=== PATIENT | male | born 1965 | race Caucasian/White ===

== ENCOUNTER 2019-10-10 08:43 | Emergency (ER) | payer SELFPAY ==
[~2019-10-10] VITALS: Ht 175 cm; Wt 92.0 kg
--- NOTE | 2019-10-10 08:59 | ED Upper Extremity ---
General Chief Complaint: Upper Extremity Stated Complaint: RT SHOULDER PAIN Source: patient Exam Limitations: no limitations History of Present Illness Date Seen by Provider: Oct 10, 2019 Time Seen by Provider: 08:57 Initial Comments 54-year-old male presents with right shoulder pain. Patient reports that the pain started in his right shoulder and right neck about 9 days ago. Patient states he was seen at the urgent care/walk-in clinic and was given naproxen and Flexeril. Reports he continues to have pain. Patient does not have no new acute injuries. Patient has full range of motion. He denies any chest pain, shortness of breath, fevers chills nausea vomiting or any other systemic complaints patient also reported that a few years back he was having problems with his shoulder and it was given a cortisone injection that seemed to help. Allergies and Home Medications Allergies Coded Allergies: No Known Drug Allergies (Unverified , 10/10/19) Patient Home Medication List Home Medication List Reviewed: Yes Review of Systems Constitutional: No chills, No fever Respiratory: no symptoms reported Cardiovascular: no symptoms reported Gastrointestinal: no symptoms reported Genitourinary: no symptoms reported Musculoskeletal: see HPI Skin: no symptoms reported Past Fglnahj-Ynoscy-Fyarem Hx Past Med/Social Hx: Reviewed Nursing Past Med/Soc Hx Patient Social History Recent Foreign Travel: No Physical Exam Vital Signs Capillary Refill : Height, Weight, BMI Height: '" Weight: lbs. oz. kg; BMI Method: General Appearance: WD/WN, no apparent distress Neck: supple, tender lateral (along trapezius) Cardiovascular: normal peripheral pulses, regular rate, rhythm Respiratory: chest non-tender, lungs clear, normal breath sounds, no respiratory distress Gastrointestinal: non tender, soft Shoulder: no evidence of injury, normal ROM; No bone tenderness; soft tissue tenderness Elbow/Forearm: no evidence of injury, normal ROM Wrist: Yes no evidence of injury, Yes normal ROM Neurologic/Tendon: normal sensation, normal motor functions, normal tendon functions Neurologic/Psychiatric: wellness ambassador II-XII nml as tested, alert, normal mood/affect, oriented x 3 Skin: normal color, warm/dry Progress/Results/Core Measures Results/Orders My Orders Orders - REBA DWYER DO Orphenadrine Injection (Norflex Injectio (10/10/19 09:00) Progress Progress Note : Time: 09:02 Progress Note I discussed with patient that naproxen and Flexeril as a treatment of choice for what he has. That I will not be prescribing any narcotics or stronger medicat ion. He can use topical lidocaine with menthol. He should follow-up with dairy equipment specialist for further management or his primary care provider for other pain management. Patient discharged home in stable condition Departure Impression Primary Impression: Pain of right shoulder region Additional Impression: Acute myofascial strain Disposition: HOME, SELF-CARE Condition: Stable Departure-Patient Inst. Referrals: VANIA HATHAWAY APRN (PCP) Primary Care Physician NO,LOCAL PHYSICIAN (Family) Primary Care Physician Patient Instructions: Shoulder Pain (DC), Tendonitis (DC) Add. Discharge Instructions: 4% topical lidocaine with menthol to affected area as directed on package Warm moist heat to affected area Follow-up with an dairy equipment specialist for further evaluation Naprosyn 500 mg twice a day, do not use more than this as it can injury or kidneys, use already prescribed Flexeril as directed Emergency department focuses on treating and ruling out life-threatening diseases. Whenever possible, a diagnosis is given. However, most patients are given an impression based on their history, physical exam, and workup during your brief time in the ER. Information about probable diagnosis and other educational material has been provided. Please take the time to read and understand this information. It is very important that you follow up with a physician as discussed during the visit today. Failure to adhere to your follow-up instructions may lead to severe disability, injury, or so please make sure to keep your appointments or obtain one as requested. Please keep in mind the emergency department is not designed to your primary care or "family doctor" and nonurgent issues are best evaluated by an outpatient physician All discharge instructions reviewed with patient and/or family. Voiced understanding. REBA DWYER DO Oct 10, 2019 08:59
[2019-10-10] MEDS ORDERED: ORPHENADRINE 60 MG/2 ML (NORFLEX) AMP IM ONE (09:00)
[2019-10-10 09:14] VITALS: BP 137/85
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
== END 2019-10-10 09:15 | disposition home or self-care (01) ==
LOC: EDUNIT# 08:43 → ER FS 08:46
DX: S46.911A Strain of unspecified muscle, fascia and tendon at shoulder and upper arm level, right arm, initial encounter (principal); X58.XXXA Exposure to other specified factors, initial encounter
CPT/HCPCS: 96372; 99284

== ENCOUNTER 2020-02-10 09:12 | Emergency (ER) | payer SELFPAY ==
[~2020-02-10] VITALS: Ht 175.2 cm; Wt 95.6 kg
[2020-02-10] MEDS ORDERED: LIDOCAINE 1% INJ 20 ML 20 ML VIAL ONE (09:26)
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
[2020-02-10] MEDS ORDERED: LIDOCAINE 1% INJ 20 ML 20 ML VIAL INJ ONE (09:45)
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
--- NOTE | 2020-02-10 10:02 | Diagnostic Imaging Report ---
INDICATION: Fall with injury to the right lower extremity. Time of exam: 9:47 AM Frontal and lateral views of the right tibia and fibula were obtained. Alignment at the knee and ankle is normal. The tibia and fibula appear to be intact. No fractures are detected. Soft tissues are unremarkable. IMPRESSION: No acute bony abnormality is detected. Dictated by: Dictated on workstation # [id number]
[2020-02-10 10:10] VITALS: BP 142/86
== END 2020-02-10 10:10 | disposition home or self-care (01) ==
LOC: EDUNIT# 09:12 → ER FS 09:16
DX: S81.811A Laceration without foreign body, right lower leg, initial encounter (principal); V27.4XXA Motorcycle driver injured in collision with fixed or stationary object in traffic accident, initial encounter
CPT/HCPCS: 12002; 73590

== ENCOUNTER → 2020-03-07 | Outpatient (CLI) | payer SELFPAY | LOC: WOUNDCARE 13:42 | PROVIDERS: ATTEND Surgery | DX: S81.811A Laceration without foreign body, right lower leg, initial encounter (principal); L03.115 Cellulitis of right lower limb; I89.0 Lymphedema, not elsewhere classified | CPT/HCPCS: 11042; A6260; G0463 ==

== ENCOUNTER → 2020-03-22 | Outpatient (CLI) | payer SELFPAY | LOC: WOUNDCARE 12:38 | PROVIDERS: ATTEND Orthopaedic Surgery Hand Surgery | DX: I96 Gangrene, not elsewhere classified (principal); S81.811A Laceration without foreign body, right lower leg, initial encounter; L97.212 Non-pressure chronic ulcer of right calf with fat layer exposed; I89.0 Lymphedema, not elsewhere classified; L03.115 Cellulitis of right lower limb | CPT/HCPCS: 97597; G0463 ==

== ENCOUNTER 2020-06-29 11:25 | Emergency (ER) | payer SELFPAY ==
[~2020-06-29] VITALS: Ht 177.8 cm; Wt 100.0 kg
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
[2020-06-29 12:44] VITALS: BP 152/91
== END 2020-06-29 12:47 ==
LOC: EDUNIT# 11:31 → ER FS 11:33
DX: S09.90XA Unspecified injury of head, initial encounter (principal); S00.01XA Abrasion of scalp, initial encounter; R42 Dizziness and giddiness; W21.11XA Struck by baseball bat, initial encounter; W19.XXXA Unspecified fall, initial encounter; Y35.839A Legal intervention involving a conducted energy device, unspecified person injured, initial encounter
CPT/HCPCS: 70450; 72125

== ENCOUNTER 2022-09-25 14:35 | Emergency (ER) | payer SELFPAY ==
--- NOTE | 2022-09-25 14:39 | ED Lower Extremity ---
General Stated Complaint: LT LEG INJ History of Present Illness Date Seen by Provider: Sep 25, 2022 Time Seen by Provider: 14:38 Initial Comments 57-year-old male presents with left lower abdomen/groin injury. Patient reports that he was helping hold down a cow when they are pointed calf. That the cow lifted his head quickly and cannot remove it and is now complaining of what he feels something "tore in his groin" patient was able to walk in without difficulty. He denies any noticeable bulge in his testicle or groin. Patient denies any other injury Allergies and Home Medications Allergies Coded Allergies: No Known Drug Allergies (Unverified , 10/10/19) Patient Home Medication List Home Medication List Reviewed: Yes Review of Systems Constitutional: no symptoms reported EENTM: no symptoms reported Respiratory: no symptoms reported Cardiovascular: no symptoms reported Gastrointestinal: see HPI Genitourinary: see HPI Musculoskeletal: see HPI Skin: no symptoms reported Psychiatric/Neurological: No Symptoms Reported Physical Exam Vital Signs Vital Signs - First Documented 09/25/22 14:46 Temp 36.5 Pulse 92 Resp 16 B/P (MAP) 155/90 (111) Pulse Ox 95 O2 Delivery Room Air Capillary Refill : Height, Weight, BMI Height: '" Weight: lbs. oz. kg; BMI Method: General Appearance: WD/WN, no apparent distress Neck: full range of motion Cardiovascular: normal peripheral pulses, regular rate, rhythm Respiratory: lungs clear, no respiratory distress, no accessory muscle use Gastrointestinal: soft, tenderness (Left lower abdomen/groin); No hernia Hips: bilateral hip non-tender Knees: bilateral knee non-tender Ankles: bilateral ankle non-tender Neurologic/Psychiatric: alert, normal mood/affect, oriented x 3 Skin: normal color, warm/dry Progress/Results/Core Measures Results/Orders Lab Results Laboratory Tests Test 09/25/22 14:51 Range/Units Urine Color DARK YELLOW Urine Clarity CLEAR Urine pH 6.0 5-9 Urine Specific [place] >=1.030 1.016-1.022 Urine Protein NEGATIVE NEGATIVE Urine Glucose (UA) NEGATIVE NEGATIVE Urine Ketones NEGATIVE NEGATIVE Urine Nitrite NEGATIVE NEGATIVE Urine Bilirubin NEGATIVE NEGATIVE Urine Urobilinogen 0.2 < = 1.0 MG/DL Urine Leukocyte Esterase NEGATIVE NEGATIVE Urine RBC (Auto) NEGATIVE NEGATIVE Urine RBC NONE /HPF Urine WBC RARE /HPF Urine Squamous Epithelial Cells NONE /HPF Urine Crystals PRESENT H /LPF Urine Calcium Oxalate Crystals FEW H /LPF Urine Bacteria NEGATIVE /HPF Urine Casts NONE /LPF Urine Mucus MODERATE H /LPF Urine Culture Indicated NO My Orders Orders - REBA DWYER DO Ua Culture If Indicated (09/25/22 14:47) Us Scrotum (Testicle) [id number] (09/25/22 14:47) Ketorolac Injection (Toradol Injection) (09/25/22 15:15) Orphenadrine Inj (Ed Only) (Norflex Inje (09/25/22 15:15) Vital Signs/I&O 09/25/22 09/25/22 14:46 15:17 Temp 36.5 36.5 Pulse 92 92 Resp 16 16 B/P (MAP) 155/90 (111) 155/90 Pulse Ox 95 95 O2 Delivery Room Air Room Air Progress Progress Note : Progress Note Patients physical exam shows no acute abnormalities or hernias. Patient ultrasound shows no hernia or abnormality. Patient complains of pain however when I went into discussed findings with him he was sleeping and resting comfortably with no signs of distress. Patient likely with a 6 groin strain. Patient can use Tylenol ibuprofen as stable and discharged home. Departure Impression Primary Impression: Strain of left groin Disposition: 01 HOME, SELF-CARE Condition: Stable Departure-Patient Inst. Patient Instructions: Muscle Strain ED, Groin Strain ED Add. Discharge Instructions: Tylenol and ibuprofen every 4-6 hours as needed for pain. You may use your already prescribed muscle relaxants. You can use 4% topical lidocaine with menthol in affected area. If symptoms or not improving over the next week please follow-up with your primary care provider for recheck and further evaluation. REBA DWYER DO Sep 25, 2022 14:38
[2022-09-25 15:03] LABS: BILIRUBIN,URINE NEGATIVE (NEGATIVE); CLARITY,URINE CLEAR; GLUCOSE, URINE (UA) NEGATIVE (NEGATIVE); KETONES,URINE NEGATIVE (NEGATIVE); LEUKOCYTE ESTERASE ,URINE NEGATIVE (NEGATIVE); NITRITE,URINE NEGATIVE (NEGATIVE); PROTEIN,URINE NEGATIVE (NEGATIVE)
[2022-09-25 15:05] LABS: BACTERIA,URINE NEGATIVE /HPF; CALCIUM OXALATE CRYSTALS,UR FEW /LPF; COLOR,URINE DARK YELLOW; WBC,URINE RARE /HPF
[2022-09-25] MEDS ORDERED: KETOROLAC 30 MG/ML VIAL IM STA (15:15)
[2022-09-25] MEDS ORDERED: ORPHENADRINE 60 MG/2 ML (NORFLEX) AMP (ED ONLY) IM STA (15:15)
[2022-09-25 15:17] VITALS: BP 155/90
--- NOTE | 2022-09-25 15:56 | Diagnostic Imaging Report ---
PROCEDURE: US Scrotum. TECHNIQUE: Multiple real-time grayscale images were obtained over the scrotum in various projections bilaterally. INDICATION: Left groin pain. The right testicle measures 5.3 x 2.2 x 2.9 cm and the left testicle measures 4.3 x 2.1 x 2.7 cm. Both testes show homogeneous echotexture. No discrete testicular mass is detected. There is blood flow to both testes. Epididymides are unremarkable. There are small bilateral hydroceles present. No varicocele is detected. Left inguinal canal was evaluated. No definite hernia is detected. IMPRESSION: Small bilateral hydroceles. The study is otherwise unremarkable. Dictated by: Dictated on workstation # [id number]
== END 2022-09-25 15:25 | disposition home or self-care (01) ==
LOC: EDUNIT# 14:35 → ER FS 14:38
DX: S39.011A Strain of muscle, fascia and tendon of abdomen, initial encounter (principal); Z28.310 Unvaccinated for COVID-19; W55.22XA Struck by cow, initial encounter
CPT/HCPCS: 76870; 81000

== ENCOUNTER 2022-10-01 13:20 | Emergency (ER) | payer SELFPAY ==
[~2022-10-01] VITALS: Ht 177.8 cm; Wt 88.5 kg
[2022-10-01] MEDS ORDERED: ORPHENADRINE 60 MG/2 ML (NORFLEX) AMP (ED ONLY) IM STA (13:39)
[2022-10-01] MEDS ORDERED: KETOROLAC 60 MG/2 ML VIAL IM STA (13:39)
[2022-10-01] MEDS ORDERED: CYCL10TA25 PO (13:43)
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
[2022-10-01 13:49] VITALS: BP 133/97
== END 2022-10-01 13:49 | disposition home or self-care (01) ==
LOC: EDUNIT# 13:20 → ER FS 13:22
DX: S39.011A Strain of muscle, fascia and tendon of abdomen, initial encounter (principal); Z28.310 Unvaccinated for COVID-19; X58.XXXA Exposure to other specified factors, initial encounter
CPT/HCPCS: 99284

== ENCOUNTER 2023-05-10 18:03 | Emergency (ER) | payer SELFPAY ==
[~2023-05-10 18:03] MED LIST: CYCL10TA25 PO
[2023-05-10 18:10] VITALS: BP 146/99
[2023-05-10] MEDS ORDERED: FAMOTIDINE INJ 20MG/2ML VIAL IV STA (18:34)
[2023-05-10 18:37] LABS: BASOPHILS # (AUTO) 0.1 10^3/uL (0.0-0.1); BASOPHILS % (AUTO) 0 % (0-10); EOSINOPHILS # (AUTO) 0.3 10^3/uL (0.0-0.3); EOSINOPHILS % (AUTO) 3 % (0-10); HEMATOCRIT 44 % (40-54); HEMOGLOBIN 15.2 g/dL (13.3-17.7); LYMPHOCYTES # (AUTO) 2.8 10^3/uL (1.0-4.0); LYMPHOCYTES % (AUTO) 24 % (12-44); MEAN CORPUSCULAR HEMOGLOBIN 31 pg (25-34); MEAN CORPUSCULAR HGB CONC 35 g/dL (32-36); MEAN CORPUSCULAR VOLUME 90 fL (80-99); MONOCYTES # (AUTO) 1.6 10^3/uL (0.0-1.0); MONOCYTES % (AUTO) 14 % (0-12); NEUTROPHILS # (AUTO) 6.8 10^3/uL (1.8-7.8); NEUTROPHILS % (AUTO) 59 % (42-75); PLATELET COUNT 298 10^3/uL (130-400); WHITE BLOOD COUNT 11.6 10^3/uL (4.3-11.0)
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
[2023-05-10] MEDS ORDERED: ONDANSETRON INJECTION 4 MG/2 ML (SDV) IVP ONE (18:45)
[2023-05-10 18:46] LABS: BILIRUBIN,URINE NEGATIVE (NEGATIVE); CLARITY,URINE CLEAR; COLOR,URINE YELLOW; GLUCOSE, URINE (UA) NEGATIVE (NEGATIVE); KETONES,URINE NEGATIVE (NEGATIVE); LEUKOCYTE ESTERASE ,URINE NEGATIVE (NEGATIVE); NITRITE,URINE NEGATIVE (NEGATIVE); PROTEIN,URINE NEGATIVE (NEGATIVE)
[2023-05-10 18:50] LABS: BACTERIA,URINE TRACE /HPF
[2023-05-10 18:52] LABS: ALANINE AMINOTRANSFERASE 40 U/L (0-55); ALKALINE PHOSPHATASE 82 U/L (40-136); BILIRUBIN,TOTAL 0.7 MG/DL (0.1-1.0); BUN/CREATININE RATIO 22; CALCIUM 7.9 MG/DL (8.5-10.1); CARBON DIOXIDE 22 MMOL/L (21-32); CHLORIDE 103 MMOL/L (98-107); CREATININE SERUM 0.78 MG/DL (0.60-1.30); GFR ESTIMATED 102; GLUCOSE 124 MG/DL (70-105); MAGNESIUM 1.8 MG/DL (1.6-2.4); POTASSIUM 3.7 MMOL/L (3.6-5.0); SODIUM 136 MMOL/L (135-145)
[2023-05-10 18:53] LABS: ALBUMIN 3.9 GM/DL (3.2-4.5); LIPASE 16 U/L (8-78); TOTAL PROTEIN 6.3 GM/DL (6.4-8.2)
[2023-05-10 18:56] LABS: AMPHETAMINE SCREEN, URINE POSITIVE (NEGATIVE); BARBITURATE SCREEN URINE NEGATIVE (NEGATIVE); BENZODIAZEPINES SCREEN URINE NEGATIVE (NEGATIVE); CANNABINOID SCREEN, URINE POSITIVE (NEGATIVE); COCAINE SCREEN URINE NEGATIVE (NEGATIVE); METHADONE STAT NEGATIVE (NEGATIVE); OPIATE SCREEN URINE NEGATIVE (NEGATIVE); OXYCODONE STAT NEGATIVE (NEGATIVE); PROPOXYPHENE STAT NEGATIVE (NEGATIVE); TRICYCLIC ANTIDEPRESSANTS SCRE NEGATIVE (NEGATIVE)
[2023-05-10] MEDS ORDERED: HOLD METFORMIN - RECEIVED CONTRAST 20 ML VIAL IV SCH (19:15)
[2023-05-10] MEDS ORDERED: NS 100 ML (IVPB) BAG IV ONE (19:15)
[2023-05-10] MEDS ORDERED: IOHEXOL 350 MG/ML 100 ML (OMNIPAQUE 350) VIAL IV ONE (19:15)
--- NOTE | 2023-05-10 19:40 | Diagnostic Imaging Report ---
PROCEDURE: CT abdomen and pelvis with contrast. TECHNIQUE: Multiple contiguous axial images were obtained through the abdomen and pelvis after administration of intravenous contrast. Auto Exposure Controls were utilized during the CT exam to meet ALARA standards for radiation dose reduction. All CT scans use one or more of the following dose optimizing techniques: automated exposure control, MA and/or KvP adjustment based on patient size and exam type or iterative reconstruction. INDICATION: Abdominal pain, distention and diarrhea. COMPARISON: No relevant comparison available. FINDINGS: The lung bases demonstrate no finding of pneumonia or edema. There is no pleural or pericardial fluid. There is diffuse hepatic steatosis. There is no focal intrahepatic lesion or mass. The gallbladder is nondistended without radiodense stones or biliary dilatation. Hepatic and portal veins are patent. The pancreas is unremarkable. The spleen is normal in size. There is no adrenal mass. The kidneys enhance normally and are nonobstructed. Stomach is nondistended. The small bowel demonstrates a few fluid-filled loops of small bowel without evidence of significant dilatation or obstruction. The appendix is normal. There is moderate stool demonstrated throughout the colon without finding of colonic thickening or pericolonic fat stranding. There are a few diverticula but no finding of diverticulitis. There is no free air, free fluid, abscess or finding of adenopathy. The aorta is normal in caliber. There is no finding of an acute or suspicious osseous abnormality. IMPRESSION: 1. A few fluid-filled loops of nondilated small bowel that may relate to an enteritis. There is, however, no finding to suggest bowel obstruction. There is no evidence of appendicitis. There is no finding of diverticulitis. 2. There is no free air, free fluid, abscess or adenopathy. 3. Marked hepatic steatosis. Dictated by: Dictated on workstation # [id number]
== END 2023-05-10 20:21 | disposition home or self-care (01) ==
LOC: EDUNIT# 18:03 → ER FS 18:06
DX: A08.4 Viral intestinal infection, unspecified (principal); F15.10 Other stimulant abuse, uncomplicated; F14.90 Cocaine use, unspecified, uncomplicated; F17.290 Nicotine dependence, other tobacco product, uncomplicated; Z20.822 Contact with and (suspected) exposure to COVID-19; Z28.310 Unvaccinated for COVID-19
CPT/HCPCS: 36415; 74177; 80053; 80306; 81000; 83690; 83735; 84484; 85025; 87636; 99284; G0480; 80320; Q9967